=== PATIENT | female | born 1995 | race Caucasian/White ===

== ENCOUNTER 2016-06-26 21:48 | Emergency (ER) | payer BC ==
[~2016-06-26] VITALS: Ht 152.4 cm; Wt 43.1 kg
[2016-06-26 22:04] VITALS: BP 119/75; PULSE 100; RESP 16; TEMP 98.5; O2SAT 99
[2016-06-26] MEDS ORDERED: SODIUM CHLORIDE 0.9% FLUSH 5 ML FLUSH IVF PRN (22:45)
[2016-06-26 22:46] VITALS: BP 119/75; PULSE 100; RESP 18; TEMP 98.5; O2SAT 99
--- NOTE | 2016-06-26 22:52 | PD ---
HPI . Right lower quadrant abdominal pain Chief Complaint: Abdominal Pain Time Seen by Provider: 22:41 Travel History International Travel<30 days: No Contact w/Intl Traveler<30days: No History of Present Illness HPI Patient presents with right lower quadrant abdominal pain. Onset was yesterday. Pain has been continuous. It has been in the right lower quadrant the entire time. It is associated with nausea. Pain is exacerbated by pressing on it and by standing. She denies any fever, anorexia, urinary tract symptoms, genital symptoms. [id number]: Right lower quadrant DURATION: 2 days TIMING: Continuous MODIFYING FACTORS: Exacerbated by palpation and standing ASSOCIATED SYMPTOMS: Nausea PFSH Past Medical History Diminished Hearing: No GERD: Yes Immunizations Current: Yes (UTD) Migraines: Yes Past Surgical History Abdominal Surgery: Yes (LUISA PLUNDIFICATION) Other Surgery: Yes (FEEDING TUBE CHILD-SURGICAL FIX D/T LENGTH IT WAS IN) Social History Alcohol Use: No Tobacco Use: No Substance Use: No Allergies-Medications (Allergen,Severity, Reaction): Coded Allergies: Milk (Verified Allergy, Severe, REFLUX, 06/26/16) Reported Meds & Prescriptions Reported Meds & Active Scripts Active No Active Prescriptions or Reported Medications Review of Systems Except as stated in HPI: all other systems reviewed are Neg General / Constitutional: No: Fever, Chills Gastrointestinal: Positive: Nausea, Abdominal Pain, No: Vomiting, Diarrhea, Loss of Appetite Genitourinary: No: Urgency, Frequency, Dysuria, Dyspareunia, Discharge, Vaginal Bleeding Physical Exam Narrative GENERAL: Healthy-appearing young woman in no acute distress. SKIN: Warm and dry. HEAD: Atraumatic. Normocephalic. EYES: Pupils equal and round. ENT: No nasal bleeding or discharge. Mucous membranes pink and moist. NECK: Trachea midline. CARDIOVASCULAR: Regular rate and rhythm. RESPIRATORY: No accessory muscle use. GASTROINTESTINAL: Abdomen soft. RLQ tenderness without guarding or rebound. Nondistended. Normal bowel sounds. : Purulent discharge from the cervical os. No cervical motion tenderness. Right adnexal tenderness and fullness. MUSCULOSKELETAL: No obvious deformities. No edema. NEUROLOGICAL: Awake and alert. No obvious cranial nerve deficits. Motor grossly within normal limits. Normal speech. PSYCHIATRIC: Appropriate mood and affect; insight and judgment normal. Data Data Last Documented VS Vital Signs Date Time Temp Pulse Resp B/P Pulse Ox O2 Delivery O2 Flow Rate FiO2 06/27/16 00:55 82 18 105/52 100 Room Air 06/26/16 22:46 98.5 Orders Complete Blood Count With Diff (06/26/16 22:44) Gc And Chlamydia Pcr (06/26/16 22:44) Wet Prep Profile (06/26/16 22:44) Urinalysis - C+S If Indicated (06/26/16 22:44) Sodium Chloride 0.9% Flush (Ns Flush) (06/26/16 22:45) Ed Urine Pregnancytest Poc (06/26/16 22:44) Us Pelvis Comp Director [employer] Services/Non-Preg (06/26/16 23:43) Ceftriaxone Inj (Rocephin Inj) (06/26/16 23:45) Lidocaine 1% Inj (50 Ml) (Xylocaine 1% I (06/26/16 23:45) Ketorolac Inj (Toradol Inj) (06/26/16 23:45) Labs Laboratory Tests Test 06/26/16 06/26/16 06/26/16 23:10 23:40 23:45 Urine Color YELLOW Urine Turbidity SLIGHT Urine pH 6.0 Urine Specific [place] 1.014 Urine Protein NEG mg/dL Urine Glucose (UA) NEG mg/dL Urine Ketones 15 mg/dL Urine Occult Blood NEG Urine Nitrite NEG Urine Bilirubin NEG Urine Leukocyte Esterase SMALL Urine RBC 0-3 /hpf Urine WBC 3-5 /hpf Urine Squamous Epithelial 6-8 /hpf Cells Urine Amorphous Sediment SMALL Urine Bacteria FEW /hpf Urine Mucus MOD /lpf Microscopic Urinalysis Comment CULT NOT INDICATED Clue Cells (Wet Prep) NONE SEEN Vaginal Trichomonas (Wet Prep) NONE SEEN Vaginal Yeast (Wet Prep) NONE SEEN White Blood Count 11.2 TH/MM3 Red Blood Count 4.86 MIL/MM3 Hemoglobin 11.2 GM/DL Hematocrit 36.3 % Mean Corpuscular Volume 74.6 FL Mean Corpuscular Hemoglobin 23.1 PG Mean Corpuscular Hemoglobin 31.0 % Concent Red Cell Distribution Width 15.3 % Platelet Count 256 TH/MM3 Mean Platelet Volume 7.5 FL Neutrophils (%) (Auto) 85.4 % Lymphocytes (%) (Auto) 7.0 % Monocytes (%) (Auto) 6.4 % Eosinophils (%) (Auto) 0.9 % Basophils (%) (Auto) 0.3 % Neutrophils # (Auto) 9.6 TH/MM3 Lymphocytes # (Auto) 0.8 TH/MM3 Monocytes # (Auto) 0.7 TH/MM3 Eosinophils # (Auto) 0.1 TH/MM3 Basophils # (Auto) 0.0 TH/MM3 CBC Comment AUTO DIFF Differential Comment AUTO DIFF CONFIRMED Platelet Estimate NORMAL Platelet Morphology Comment NORMAL MDM Medical Decision Making Medical Screen Exam Complete: Yes Emergency Medical Condition: Yes Differential Diagnosis Differential diagnosis of abdominal pain includes but is not limited to gastritis, pancreatitis, hepatitis, gastroenteritis, gallbladder disease, constipation, urinary retention, UTI, peptic ulcer disease, diverticulitis, PID , TOA or appendicitis Narrative Course Patient presents with right lower quadrant pain since yesterday. She does not have any other symptoms suggestive of appendicitis such as anorexia or fever. She is tender in the right adnexa. I have ordered an ultrasound to rule out a tubo-ovarian abscess. Ultrasound is negative. She'll be treated for PID. Diagnosis Primary Impression: PID (acute pelvic inflammatory disease) Patient Instructions: General Instructions, Pelvic Inflammatory Disease (DC) Med/Other Pt SpecificInfo: Prescription(s) given Scripts Tramadol (Ultram)50 Mg Tab50 Mg PO Q4H PRN (PAIN) #12 TAB Ref 0 Prov:Cyndie Nguyen MD 06/27/16 Ibuprofen 800 Mg Slw000 Mg PO Q8H PRN (pain) #30 TAB Ref 0 Prov:Cyndie Nguyen MD 06/27/16 Metronidazole (Flagyl)500 Mg [id number] Mg PO BID 7 Days Ref 0 Prov:Cyndie Nguyen MD 06/27/16 Doxycycline Hyclate 100 Mg [id number] Mg PO BID #20 CAP Ref 0 Prov:Cyndei Nguyen MD 06/27/16 Disposition: 01 DISCHARGE HOME Condition: Stable Cyndie Nguyen MD Jun 26, 2016 22:51
[2016-06-26 23:17] LABS: BLOOD, URINE NEG (NEG); GLUCOSE,URINE NEG (NEG); KETONE, URINE 15 mg/dL (NEG); NITRITE,URINE NEG (NEG)
[2016-06-26 23:29] LABS: URINE COLOR YELLOW (YELLW/STRAW)
[2016-06-26 23:30] LABS: BACTERIA, URINE FEW /hpf; MUCUS URINE MOD /lpf (OCC)
[2016-06-26 23:31] LABS: COMMENT (UR) CULT NOT INDICATED; CULTURE IF INDICATED CULT NOT INDICATED; RBC, URINE 0-3 /hpf (0-3)
[2016-06-26] MEDS ORDERED: LIDOCAINE HCL 1% 50 ML VIAL XX ONE (23:45)
[2016-06-26] MEDS ORDERED: KETOROLAC TROMETHAMINE 60 MG/2 ML (IM) VIAL IM ONE (23:45)
[2016-06-26] MEDS ORDERED: cefTRIAXone 250 MG VIAL IM ONE (23:45)
[2016-06-26 23:52] LABS: AUTOMATED NEUTROPHIL # 9.6 TH/MM3 (1.8-7.7); BASOPHIL % 0.3 % (0.0-2.0); EOSINOPHIL # 0.1 TH/MM3 (0-0.4); EOSINOPHIL % 0.9 % (0.0-4.0); HEMATOCRIT 36.3 % (35.0-46.0); LYMPHOCYTE # 0.8 TH/MM3 (1.0-4.8); MEAN CELL VOLUME 74.6 FL (80.0-100.0); MEAN CORPUSCULAR HEMOGLOBIN 23.1 PG (27.0-34.0); MONO % 6.4 % (0.0-8.0); NEUT % 85.4 % (16.0-70.0); PLATELET COUNT 256 TH/MM3 (150-450); RED BLOOD COUNT 4.86 MIL/MM3 (4.00-5.30); RED CELL DISTRIBUTION WIDTH 15.3 % (11.6-17.2); WHITE BLOOD COUNT 11.2 TH/MM3 (4.0-11.0)
[2016-06-26 23:53] VITALS: BP 117/61; PULSE 95; RESP 18; O2SAT 100
[2016-06-27 00:01] LABS: HEMO FLAGS AUTO DIFF
[2016-06-27 00:21] LABS: PLATELET ESTIMATE SMEAR NORMAL (NORMAL); PLATELET MORPHOLOGY NORMAL (NORMAL); SCAN/DIFF AUTO DIFF CONFIRMED
[2016-06-27 00:55] VITALS: BP 105/52; PULSE 82; RESP 18; O2SAT 100
--- NOTE | 2016-06-27 01:51 | RADHPO ---
EXAM DATE/TIME: 06/27/2016 01:23 [facility] COMPARISON: No previous studies available for comparison. INDICATIONS : Right lower quadrant pain. MEDICAL HISTORY : Gastroesophageal reflux disease. Right lower quadrant pain. SURGICAL HISTORY : Maurice plundification. ENCOUNTER: Initial ACUITY: 1 day PAIN SCORE: 5/10 LOCATION: Bilateral pelvis MEASUREMENTS: UTERUS: 6.9 x 4.0 x 2.8 cm ENDOMETRIAL STRIPE: 12 mm RIGHT OVARY: 2.6 x 2.6 x 1.9 cm LEFT OVARY: 4.1 x 2.2 x 1.7 cm FINDINGS: UTERUS: The myometrium has homogeneous echotexture without mass. RIGHT OVARY: Ovary contains no mass or significant cystic lesion. LEFT OVARY: Ovary contains no mass or significant cystic lesion. MISCELLANEOUS: No free fluid. CONCLUSION: Pelvic ultrasound within normal limits. Nicola Hess MD on June 27, 2016 at 1:48 Board Certified Radiologist. This report was verified electronically.
[2016-06-27] MEDS ORDERED: METR-1 PO (01:59)
[2016-06-27] MEDS ORDERED: DOXY100C PO (01:59)
[2016-06-27] MEDS ORDERED: ULTR50TA5 PO (01:59)
[2016-06-27] MEDS ORDERED: IBUP800T23 PO (01:59)
[2016-06-27 02:06] VITALS: BP 116/59; PULSE 86; RESP 18; O2SAT 100
[2016-06-27 02:20] LABS: CHLAMYDIA PCR NOT DETECTED (NOT DETECT); NEISSERIA PCR NOT DETECTED (NOT DETECT)
== END 2016-06-27 02:25 | disposition home or self-care (01) ==
LOC: PHED 21:48
DX: N73.9 Female pelvic inflammatory disease, unspecified (principal); K21.9 Gastro-esophageal reflux disease without esophagitis
CPT/HCPCS: 76856; 81001; 84703; 85025; 87210; 87491; 87591; 96372; 99284; J0696; J1885